=== PATIENT | male | born 1995 ===

== ENCOUNTER → 2017-04-27 | Outpatient (CLI) | payer OTHER ==
[2017-04-27 20:00] LABS: BASO % 0.3 %; BASO ABS # 0.02 K/uL (0-0.2); COMPLETE YES; EOS % 1.8 %; HEMATOCRIT 46.7 % (42-52); IG% 0.1 %; LYMPH % 34.5 %; LYMPH ABS # 2.68 K/uL (1.2-3.4); MEAN CELL VOLUME 94.7 fL (80-100); MEAN CORPUSCULAR HEMOGLOBIN 32.9 pg (25-34); MEAN CORPUSCULAR HGB CONC 34.7 g/dl (32-36); MEAN PLATELET VOLUME 10.8 fL (7.4-10.4); MONO % 8.2 %; NEUT % 55.1 %; PLATELET COUNT 246 K/uL (130-400); RED BLOOD COUNT 4.93 M/uL (4.7-6.1); WHITE BLOOD COUNT 7.77 K/uL (4.8-10.8)
== END | disposition home or self-care (01) ==
LOC: C.LABSPEC 09:43
PROVIDERS: ATTEND Pediatrics Pediatric Gastroenterology
DX: K50.919 Crohn's disease, unspecified, with unspecified complications (principal)